=== PATIENT | female | born 1985 | race Caucasian/White ===

== ENCOUNTER 2017-08-18 07:44 | Inpatient (IN) ==
[2017-08-18] MEDS ORDERED: Lidocaine 1% 20 ML MDV INFILT PRN (07:48)
[2017-08-18] MEDS ORDERED: Ondansetron 4 MG/2 ML VIAL IVP PRN (07:48)
[2017-08-18] MEDS ORDERED: *HR* Nalbuphine 10 MG/ML AMPUL IVP PRN (07:48)
[2017-08-18] MEDS ORDERED: Famotidine 20 MG/2 ML VIAL IVP PRN (07:48)
[2017-08-18] MEDS ORDERED: Naloxone 0.4 MG/ML INJ IVP PRN (07:48)
[2017-08-18] MEDS ORDERED: Ringers Solution, Lactated 1,000 ML IVC SCH (08:00)
[2017-08-18] MEDS ORDERED: Oxytocin 20 units/ LR 1000 mL 20 UNIT/1,000 ML BAG IVC SCH ×2 (08:00→10:28)
[2017-08-18 08:07] LABS: Basophils % 0.2 %; Eosinophils % 0.2 %; Hematocrit 34.9 % (35.3-44.9); Hemoglobin 11.6 g/dL (11.5-15.4); Immature Granulocytes % 0.6 % (0-4); Lymphocytes # 1.3 K/mcL (0.6-4.6); Lymphocytes % 10.8 %; Mean Corpuscular HGB Conc 33.2 g/dL (31.6-35.5); Mean Corpuscular Hemoglobin 27.4 pg (28.0-33.3); Mean Corpuscular Volume 82.3 fL (83.0-100.0); Mean Platelet Volume 10.7 fL (9.4-12.4); Monocytes % 8.3 %; Neutrophils # 9.8 K/mcL (1.6-8.9); Platelet Count 196 K/mcL (140-400); Red Blood Count 4.24 M/mcL (3.82-4.97); Red Cell Distribution Width 12.7 % (11.5-14.5); Segmented Neutrophils % 79.9 %
--- NOTE | 2017-08-18 09:24 | OB/GYN History & Physical ---
Date of Encounter: 08/18/17 Time of Encounter: 08:00 Assessment and Plan (1) 39 weeks gestation of Current visit: Yes Status: Acute admitted for delivery (2) Spontaneous onset of labor Current visit: Yes Status: Acute admitted for deliver History of Present Illness Chief complaint: Spontaneous labor HPI: Ms. James is a 31 year old female @ 39w5d presents to labor and delivery with complaints of contractions that started around 0430. Patient reports contractions have become stronger and closer together at every 3-4 min. Patient reports +FM. Denies vaginal bleeding. Patient reports small leaking of fluid since being on the units. SVE 7.8/100/0 with bulging membranes. Nitrazine was equivocal. Blood type: O+ Rubella: Immune Hep B: Nonreactive GBS: Negative Past Med Surg Social Fam HX - Past Medical History Source: patient Medical history: no medical history Psychiatric history: no psych history - Past Surgical History Surgical History: no surgical history - Social History Smoking Status: Never smoker Smokeless Tobacco Status: No Alcohol use: none Drug use: none Occupational status: employed Current living situation: Home - Independent Activity Level: Independent ambulation Recent Out of Country Travel Within the Last 8 Weeks: No Exposure or Possible Exposure to Illness During Travel: No Obstetrical History - Pregnancies : 4 Para: 3 Term: 3 : 0 Ab's: 0 Livin Medications and Allergies 3 Allergy/AdvReac Type Severity Reaction Status Date / Time No Known Allergies Allergy Verified 08/18/17 07:48 Review of System OB - Constitutional Constitutional ROS IM: no chills, no fever(s), no headache(s) - Cardiovascular Cardiovascular: no chest pain, no lightheadedness, no palpitations, no syncope - Respiratory Respiratory: no cough - Gastrointestinal Gastrointestinal: no abdominal pain, no constipation, no cramping, no diarrhea, no heartburn, no nausea, no vomiting - Genitourinary Genitourinary: no abnormal vaginal bleeding, no flank pain, no urinary urgency, no vaginal odor, no vaginal pruritis Exam - Constitutional Constitutional: well developed, well nourished, no acute distress, average body habitus - HEENT HEENT: Normocephaly, Mucus Membranes Moist - Neck Neck exam: full ROM, supple - Lungs Respiratory exam: CTAB - Cardiovascular Cardiovascular exam: RRR, +S1, +S2 - Abdomen Abdomen: Present: bowel sounds normal, gravid, non tender - Extremities Extremities exam: full ROM Deep Tendon Reflex Grade: 2+ Normal - Cervix Dilation: 8 Effacement: 100 Station: 0 - Uterus Uterus exam: Present: normal size, normal contour - Anus/Rectum Anus/Rectum: Present: normal perianal skin Results Result Diagrams: 08/18/17 07:50 Abnormal lab results WBC 12.3 K/mcL (4.3-11.1) H 08/18/17 07:50 Hct 34.9 % (35.3-44.9) L 08/18/17 07:50 MCV 82.3 fL (83.0-100.0) L 08/18/17 07:50 MCH 27.4 pg (28.0-33.3) L 08/18/17 07:50 Neutrophils # 9.8 K/mcL (1.6-8.9) H 08/18/17 07:50 All other labs normal. - VTE Reasons for not Prescribing Prophylaxis: Treatment not Indicated - Low risk for VTE
--- NOTE | 2017-08-18 09:34 | OB/GYN Procedure Note ---
Delivery - Delivery Date: 08/18/17 Provider: Gillian Robb Intrapartum events: none Delivery induction: none Delivery augmentation: rupture of membranes Delivery monitor: external FHT, external uterine Anesthesia: none Estimated Blood Loss: 250 - Infant (s) A Infant Delivery Date: 08/18/17 Infant Delivery Time: 08:22 Presentation: vertex Position: [place] Gender: Female Viability: Viable at 1 minute: 8 at 5 mins: 9 Shoulder Dystocia: not encountered Specimens collected: cord blood Placenta: spontaneous Cord: 3 umbilical vessels - Repair Episiotomy: none Laceration Description: None - Complications Delivery complications: none - Disposition Mom disposition: stable in LDR disposition: stable in LDR - Comments Comments: At patient's bedside. Patient reports she needs to push. Patient placed in stirrups and prepped for vaginal delivery. Under maternal effort patient spontaneously delivered a viable female infant over and intact perineum. was placed on maternal abdomen. No nuchal cord, shoulder dystocia or meconium was encountered. Cord was clamped and cut after pulsation ceased. continues skin to skin care. Apagars 8/9. No weight on at this time. Both mother and stable in LDR for 2 hour recovery.
[2017-08-18] MEDS ORDERED: Measles/Mumps/Rubella Vacc 0.5 ML VIAL SQ PRN (10:28)
[2017-08-18] MEDS ORDERED: Ibuprofen 600 MG TABLET PO PRN (10:28)
[2017-08-18] MEDS ORDERED: Acetaminophen 325 MG TABLET PO PRN (10:28)
[2017-08-18] MEDS ORDERED: Lanolin 7 G OINT...G. TP PRN (10:28)
[2017-08-18] MEDS ORDERED: *HR* HYDROcodone/Acet 5/325 mg TABLET PO PRN (10:28)
[2017-08-18] MEDS ORDERED: Benzocaine/Menthol 56 GM AEROSOL SPRAY TP PRN (10:28)
--- NOTE | 2017-08-19 08:11 | Discharge Summary ---
Date of Encounter: 08/19/17 Time of Encounter: 08:07 - Discharge Diagnosis (1) Vaginal delivery Priority: Primary Status: Acute Comments: S/P Vaginal Delivery Day 1 Pain is well controlled Lochia is light and without clots VSS Tolerating regular diet Voiding without difficulty Breast feeding Discharge home today. - Discharge Medications Prescriptions: Ibuprofen [Motrin] 600 mg PO Q6HR PRN #30 tablet PRN Reason: Cramping Breast Pump [BREAST PUMP] 1 each .ROUTE AD #1 each Docusate [Colace] 100 mg PO BID #20 capsule Home Medications: Acetaminophen [Tylenol] 650 mg PO Q6HR PRN tablet 08/19/17 [Rx] Benzocaine/Menthol Eugene [Dermoplast Eugene] 1 appl TP QID PRN aerosol 08/19/17 [Rx] Breast Pump [BREAST PUMP] 1 each .ROUTE AD #1 each 08/19/17 [Rx] Docusate [Colace] 100 mg PO BID #20 capsule 08/19/17 [Rx] Ibuprofen [Motrin] 600 mg PO Q6HR PRN #30 tablet 08/19/17 [Rx] Lanolin [Lansinoh] 1 appl TP TID PRN oint...g. 08/19/17 [Rx] Vit/FA 1 each PO DAILY tablet 08/19/17 [Rx] Allergies/Adverse Reactions: 3 Allergy/AdvReac Type Severity Reaction Status Date / Time No Known Allergies Allergy Verified 08/18/17 07:48 Data Procedures and tests throughout hospitalization: Laboratory Tests 08/18/17 07:50 WBC 12.3 H RBC 4.24 Hgb 11.6 Hct 34.9 L MCV 82.3 L MCH 27.4 L MCHC 33.2 RDW 12.7 Plt Count 196 MPV 10.7 Immature Gran % 0.6 Seg Neutrophils % 79.9 Lymphocytes % 10.8 Monocytes % 8.3 Eosinophils % 0.2 Basophils % 0.2 Neutrophils # 9.8 H Lymphocytes # 1.3 Monocytes # 1.0 Eosinophils # 0.0 Basophils # 0.0 Labs on day of discharge: Labs from last 24 hours 08/18/17 07:50 WBC 12.3 H RBC 4.24 Hgb 11.6 Hct 34.9 L MCV 82.3 L MCH 27.4 L MCHC 33.2 RDW 12.7 Plt Count 196 MPV 10.7 Immature Gran % 0.6 Seg Neutrophils % 79.9 Lymphocytes % 10.8 Monocytes % 8.3 Eosinophils % 0.2 Basophils % 0.2 Neutrophils # 9.8 H Lymphocytes # 1.3 Monocytes # 1.0 Eosinophils # 0.0 Basophils # 0.0 Date of admission: 08/18/17 07:44 Primary care physician: PCP NONE Consults: 08/18/17 10:28 Consult to Body Former [CONS] Routine Comment: Vaginal delivery, consult needed Discharging clinician: Marija Mcmullen Anticipated date of discharge: 08/19/17 - Patient Status Disposition: Home, Self-Care Condition: Good Functional capacity at discharge: independent ambulation Overall status at discharge: patient is back to baseline - Discharge Instructions Follow Up With: NONE,PCP [Primary Care Provider] - Gillian Robb CNM [Non-Partnered Physician] - - Diet and Activity Activity: increase activity as tolerated Diet: regular diet Hospital Course Reason for admission: active labor, IUP at term Episiotomy: none Laceration: none Other procedures: none complications: none Discharge diagnosis: IUP at term delivered baby: female Time Attestation: Total time spent providing and/or coordinating discharge services: Time Spent: Less than 30 minutes Exam - Constitutional Vitals: Temp Pulse Resp BP Pulse Ox 98.4 F 83 14 125/86 96 08/19/17 04:15 08/19/17 04:15 08/19/17 04:15 08/19/17 04:15 08/19/17 04:15 General appearance IM: cooperative, A&O X 3, pleasant - Respiratory Respiratory exam: Present: CTAB - Cardiovascular Cardiovascular exam IM: Present: RRR, +S1, +S2 - GI/Abdominal GI/Abdominal exam IM: normal bowel sounds, soft - Rectal Rectal exam: deferred - Uterine Tone: Firm Uterus Position: At Umbilicus, Midline - Extremities Exam Extremities exam IM: Present: normal capillary refill, normal inspection, radial pulses palpable and symmetrical - Neurological Exam Neurological exam: alert, oriented X3
[2017-08-19 08:37] VITALS: BP 125/84
[2017-08-19] MEDS ORDERED: Prenatal Vit/FA 1 EACH TABLET PO SCH (09:00)
== END 2017-08-19 09:59 | disposition home or self-care (01) | DRG 775 ==
LOC: 1NENULAB 07:44 → 1NENUOBS 10:20
PROVIDERS: ADMIT Advanced Practice Midwife; ATTEND Advanced Practice Midwife